=== PATIENT | female | born 1990 | race Caucasian/White ===

== ENCOUNTER 2020-01-10 20:20 | Emergency (ER) | payer SELFPAY ==
[2020-01-10 20:32] VITALS: BP 144/96; PULSE 98; TEMP 99; BMI 23.8
[2020-01-10 21:13] LABS: BASO % 0.7 % (0-2.0); EOS % 0.2 % (0-4.5); HEMATOCRIT 38.6 % (32.4-45.2); HEMOGLOBIN 12.6 GM/dl (10.7-15.3); LYMPH % 23.8 % (8-40); MCH 27.6 pg (25.7-33.7); MCHC 32.8 g/dl (32.0-36.0); MEAN CELL VOLUME 84.3 fl (80-96); MEAN PLT VOLUME 9.3 fl (7.5-11.1); MONO % 4.6 % (3.8-10.2); NEUT % 70.7 % (42.8-82.8); PLATELET COUNT 220 K/MM3 (134-434); RBC 4.57 M/mm3 (3.60-5.2); RDW 12.3 % (11.6-15.6); WHITE BLOOD COUNT 10.4 K/mm3 (4.0-10.8)
[2020-01-10 21:16] LABS: HCG,QUALITATIVE URINE Negative
[2020-01-10 21:21] LABS: INR 1.15 (0.82-1.09); PROTHROMBIN TIME (PATIENT) 12.8 SEC (10.2-13.0)
[2020-01-10 21:36] LABS: ALBUMIN 4.3 g/dl (3.4-5.0); BILIRUBIN,TOTAL 0.7 mg/dl (0.2-1); CALCIUM 9.3 mg/dl (8.5-10); CREATININE 0.6 mg/dl (0.55-1.3); POTASSIUM 3.7 mmol/L (3.5-5.1); TOT PROT 7.7 g/dl (6.4-8.2)
--- NOTE | 2020-01-11 00:57 | PDOC ---
Documentation entered by Constanza Mercado SCRIBE, acting as scribe for Luiza Grey MD. Luiza Grey MD: This documentation has been prepared by the sumitibeRogelio Lincy, SCRIBE, under my direction and personally reviewed by me in its entirety. I confirm that the documentation accurately reflects all work, treatment, procedures, and medical decision making performed by me. History of Present Illness - General Chief Complaint: Pain, Acute Stated Complaint: RLQ PAIN Time Seen by Provider: 01/10/20 20:24 History Source: Patient Exam Limitations: No Limitations - History of Present Illness Initial Comments: 01/10/20 21:18 The patient is a 29-year-old female with a past medical history significant for Kidney stones (at age 17) and Borderline DM who presents to the emergency department with right lower quadrant pain associated with diarrhea. The patient reports about 2 weeks ago she was having urinary frequency, denies abdominal pain, dysuria, or hematuria, and was prescribed Cipro. The patient reports being compliant with Cipro, additionally, she was having episodes of loose stool. The patient reports the antibiotics weren't helping with the symptoms, so she took OTC cranberry vitamins. The patient reports her symptoms worsened, and she started having multiple episodes of non-bloody diarrhea. The patient reports for diarrhea she took 2 doses of Immodium, subsequently, she was having constipation and gas build-up. The patient reports 10 days ago she might have strained a muscle and started having right lower quadrant pain, thats been worsening since the presentation. The patient reports the pain has been radiating to the right flank and right lower back, denies pain aggravation with food or with walking. The patient reports constipation improved and reports she had a normal bowel movement this morning. The patient reports around 5:00 pm today she had codfish, and about 30 minutes later she had an acute onset of nonbloody diarrhea and worsening right lower quadrant pain. The patient reports she was driving to bean pick[place] her boyfriend, secondary to the pain she was having difficulty passing the gas. The patient reports she is anxious being in the hospital, however, the pain was worsening and she was concerned. Denies a history of ovarian cyst. Denies vaginal bleeding or discharge. The patient reports drinking plenty of water and pedialyte following episodes of diarrhea. Hx of chlamydia and bacterial vaginosis. No history of PID No new sex partners(states that she has been with her boyfriend for 2 years) LMP: 17 days ago, regular (patient reports her cycle only last for 2 days) Allergies: seasonal allergies and mild latex allergy. NKDA Social history: Longtime tobacco user, quit in July. Denies the use of alcohol or recreational drugs. PCP: In [place] (patient reports she moved to [place] in July). Past History - Medical History Allergies/Adverse Reactions: Allergies Allergy/AdvReac Type Severity Reaction Status Date / Time No Known Allergies Allergy Unverified 01/10/20 20:23 Home Medications: Ambulatory Orders NK [No Known Home Medication] 01/10/20 Review of Systems - Review of Systems Able to Perform ROS?: Yes Comments:: 01/10/20 21:21 CONSTITUTIONAL: Pt denies Fever, Chills, weakness. HEENT: denies vision changes, sore throat RESPIRATORY: Denies cough, sob, hemoptysis CARDIAC: denies chest pain, palpitations, lightheadedness, leg swelling ABD/GI: +right lower quadrant pain and diarrhea. Denies nausea, vomiting, blood per rectum, melena. : denies dysuria, frequency, discharge MSK: denies back pain, joint swelling SKIN: denies bruising, erythema, rash NEUROLOGICAL: denies headache, numbness, focal weakness, tingling, ataxia, weakness HEMATOLOGICAL: denies anemia, easy bruising, easy bleeding *Physical Exam - Physical Exam 01/10/20 21:22 GENERAL: The patient is awake, alert, and fully oriented, in no acute distress. HEAD: Normal with no signs of trauma. EYES: Pupils equal, round and reactive to light, extraocular movements intact, sclera anicteric, conjunctiva clear with no pallor. ENT: Ears normal, nares patent, oropharynx clear without exudates. Moist mucous membranes. NECK: Normal range of motion, supple without lymphadenopathy, JVD, or masses. CHEST WALL: no substernal tenderness, no rib tenderness. LUNGS: Breath sounds equal, clear to auscultation bilaterally. No wheeze/crackles. HEART: Regular rate and rhythm, normal S1 and S2 without murmur or rub. ABDOMEN: +moderate right lower quadrant abdominal tenderness, without rebound tenderness, involuntary guarding. Normal bowel sounds, soft, negative murphys sign. EXTREMITIES: Normal range of motion, no edema. No clubbing or cyanosis. No cords, erythema, or tenderness. NEUROLOGICAL: Cranial nerves II through XII grossly intact. Normal speech, normal gait. PSYCH: Normal mood, normal affect. SKIN: Warm, Dry, normal turgor, no rashes or lesions noted. ED Treatment Course - LABORATORY CBC & Chemistry Diagram: 01/10/20 21:07 01/10/20 20:33 Medical Decision Making - Medical Decision Making As noted above, this 29-year-old woman presents with right lower quadrant abdominal discomfort that began 2 weeks ago and she felt intermittently until the last few days when it became more steady and more severe. She has had intermittent diarrhea and constipation over that period of time also. She has no nausea/vomiting/fever. She has a history of kidney stones but she cannot recall if that pain was similar to the current pain (renal colic was 12 years ago). No dysuria or other urinary tract infection symptoms. She denies vaginal discharge currently. No history of of ovarian cysts or PID. She is roughly in the midcycle of menstruation. Exam as noted with moderate right lower quadrant abdominal tenderness without rebound or guarding. CBC, chemistry profile, urinalysis, PGU, INR sent Laboratory evaluation is essentially normal. PGU was negative. Because of her distinct right lower quadrant tenderness, abdominal/pelvic CT with IV and oral contrast performed. Preliminary interpretation by Imaging golf tournament consultant: Small amount of pelvic free fluid. Otherwise, there was no evidence of acute pathology. Results discussed with the patient. Patient states that when she urinated a short time earlier, she noted fairly lar ge amount of clear vaginal discharge. She states she had no previous unusual vaginal discharge prior to this. Although this may be consistent with ovulation, in order to fully evaluate for gynecological etiology of her pain, pelvic exam is required. Patient agreed to this. On pelvic exam, normal female external genitalia without inflammation/rash/masses, vaginal vault appeared normal with moderate amount of clear secretions present. Cervix without obvious abnormality. No CMT. No significant adnexal tenderness or masses palpated. Cervical sample obtained for chlamydia/GC No indication that pelvic inflammatory disease is present; will defer any antibiotics at this time. Clinical presentation most consistent with possible ovarian cyst or, less likely, mittelschmerz (because she first felt this pain 2 weeks ago). In any case, the patient should have gynecologic follow-up. She states that her general medical doctor also follows her for her gynecologic care. However, patient recently moved here and her medical doctor is in [place] where she previously lived. She states she can easily follow-up with her doctor in [place]. Still, we will give the patient a referral for Dr. Vázquez if she finds it difficult to travel to see her general doctor. Discharge - Discharge Information Problems reviewed: Yes Clinical Impression/Diagnosis: Pelvic pain Condition: Stable Disposition: HOME - Follow up/Referral Referrals: Jamie Vázquez MD [Staff Physician] - - Patient Discharge Instructions Patient Printed Discharge Instructions: DI for Ovarian Cyst Additional Instructions: warm applications to area of pain ibuprofen/acetaminophen/naproxen as needed for pain followup with your doctor within the next 2-3 days If you can't see your doctor, followup with Dr Vázquez(Resin Filterer) return to ER immediately if you have persistent severe pain, fever or vomiting - Post Discharge Activity
== END 2020-01-11 01:37 | disposition home or self-care (01) ==
LOC: FER 20:20
DX: R10.2 Pelvic and perineal pain (principal)
CPT/HCPCS: 36415; 74177-TC; 80053; 81003; 84703; 85025; 85610; 99285-25; Q9967